=== PATIENT | female | born 1965 | race Caucasian/White ===

== ENCOUNTER 2016-06-27 12:00 | Emergency (ER) | payer BC ==
[~2016-06-27] VITALS: Ht 190.5 cm; Wt 96.6 kg
[~2016-06-27 12:00] MED LIST: Bystolic PO; CELEBREX200 MG PO; LYSINE,L-LYSIN500 MG PO; PriLOSEC PO; Vicodin,Norco 5/325 PO
[2016-06-27] MEDS ORDERED: KEFLEX500 MG PO (14:12)
[2016-06-27 14:22] VITALS: BP 121/76
== END 2016-06-27 14:23 | disposition home or self-care (01) ==
LOC: EME 12:00 → EXP 12:00
DX: L03.116 Cellulitis of left lower limb (principal); I10 Essential (primary) hypertension; Z86.718 Personal history of other venous thrombosis and embolism; Z98.84 Bariatric surgery status
CPT/HCPCS: 93971; 99281; 99283

== ENCOUNTER → 2016-09-21 | Outpatient (CLI) | payer BC ==
[~2016-09-21] VITALS: Ht 191.1 cm; Wt 90.3 kg
[~2016-09-21] MED LIST changes: +FAMCICLOVIR250 MG PO; +FIORICET 50-301 EACH PO; +HYDROCHLOROTHIA25 MG PO; +KEFLEX500 MG PO; +LOSARTAN POTAS100 MG PO; +MULTIVITAMIN1 EAC2 PO; +OMEPRAZOLE40 M1 PO; +PHENTERMINE HCL30 MG PO; +TOPIRAMATE25 MG PO; +ULTRAM50 MG PO
== END | disposition home or self-care (01) ==
LOC: AMB 07:22
PROC: 0DJ08ZZ Inspection of Upper Intestinal Tract, Via Natural or Artificial Opening Endoscopic (ICD-10-PCS; principal; 2016-09-21)
DX: R10.13 Epigastric pain (principal); Z98.84 Bariatric surgery status; I10 Essential (primary) hypertension; K29.70 Gastritis, unspecified, without bleeding; Z88.0 Allergy status to penicillin; Z82.49 Family history of ischemic heart disease and other diseases of the circulatory system; Z83.42 Family history of familial hypercholesterolemia; Z82.69 Family history of other diseases of the musculoskeletal system and connective tissue; Z82.61 Family history of arthritis
CPT/HCPCS: 93005